=== PATIENT | female | born 1980 | race Caucasian/White ===

== ENCOUNTER 2017-06-20 18:09 | Emergency (ER) | payer OTHER ==
[~2017-06-20] VITALS: Ht 149.9 cm; Wt 78.8 kg
[~2017-06-20 18:09] MED LIST: FLOMAX0.4 MG PO; KEFLEX500 MG PO; TORADOL10 MG PO; ULTRAM50 MG PO; ZOFRAN ODT4 MG PO
[2017-06-20 19:52] LABS: INTERNAL CONTROL VALID? YES
[2017-06-20 21:44] VITALS: BP 135/92
== END 2017-06-20 21:46 | disposition home or self-care (01) ==
LOC: EME 18:09
PROVIDERS: Emergency Medicine
DX: S46.812A Strain of other muscles, fascia and tendons at shoulder and upper arm level, left arm, initial encounter (principal); M79.671 Pain in right foot; V49.40XA Driver injured in collision with unspecified motor vehicles in traffic accident, initial encounter; Y92.410 Unspecified street and highway as the place of occurrence of the external cause; Z87.442 Personal history of urinary calculi
CPT/HCPCS: 72040; 84703; 99281; 99284

== ENCOUNTER 2017-08-19 11:22 | Emergency (ER) | payer OTHER ==
[~2017-08-19] VITALS: Ht 149.9 cm; Wt 63.0 kg
[2017-08-19 11:52] LABS: EOSINOPHIL (%) 0.3 % (0-5); HEMATOCRIT 39.8 % (36.0-46.0); IMMATURE GRANULOCYTE (%) 0.6 % (0.0-0.7); IMMATURE GRANULOCYTE COUNT 0.1 K/uL; INSTRUMENT ABS NEUTROPHIL CT 6.5 K/uL; LYMPHOCYTE COUNT 1.7 K/uL (1.0-2.8); MCH 29.7 PG (29.0-34.0); MCHC 34.4 G/DL (30.0-36.0); MCV 86.3 FL (83-99); MEAN PLAT.VOLUME 10.8 uM^3 (9.5-12.4); MONOCYTE (%) 7.4 % (3-12); MONOCYTE COUNT 0.7 K/uL (0-0.8); NEUTROPHIL (%) 72.1 % (45-76); NEUTROPHIL COUNT 6.5 K/uL (1.8-6.4); PLATELET COUNT 260 K/uL (156-360); RBC DIS.WIDTH-CV 12.8 % (11.8-14.6); RBC DIS.WIDTH-SD 40.2 % (39-53); RED BLOOD COUNT 4.61 M/uL (3.80-5.20); WHITE BLOOD COUNT 8.9 K/uL (4.1-10.2)
[2017-08-19 12:37] VITALS: BP 120/87
== END 2017-08-19 12:37 | disposition home or self-care (01) ==
LOC: EME 11:22
PROVIDERS: Emergency Medicine
DX: S20.219A Contusion of unspecified front wall of thorax, initial encounter (principal); O13.1 Gestational [pregnancy-induced] hypertension without significant proteinuria, first trimester; O24.911 Unspecified diabetes mellitus in pregnancy, first trimester; V49.40XA Driver injured in collision with unspecified motor vehicles in traffic accident, initial encounter; Y92.410 Unspecified street and highway as the place of occurrence of the external cause; Z3A.11 11 weeks gestation of pregnancy
CPT/HCPCS: 84702; 85025; 86900; 86901; 99281; 99284